=== PATIENT | female | born 1930 | race Caucasian/White ===

== ENCOUNTER 2016-12-17 12:47 | Emergency (ER) | payer OTHER ==
[2016-12-17] MEDS ORDERED: XYLOCAINE 1% INJ ONE (15:59)
[2016-12-17] MEDS ORDERED: XYLOCAINE-MPF 1% 10 ML ONE (16:25)
--- NOTE | 2016-12-17 18:33 | PROVIDER DOCUMENTATION ---
HPI-Rash/Wound/ReCheck - General Chief Complaint: Extremity Injury Stated Complaint: FALL Time Seen by Provider: 12/17/16 15:38 Source: patient, family Allergies/Adverse Reactions: Allergies Allergy/AdvReac Type Severity Reaction Status Date / Time No Known Allergies Allergy Verified 02/08/16 15:15 Home Medications: Home Medication List Medication Instructions Recorded Confirmed Last Taken Type Amlodipine Besylate 10 mg PO DAILY 05/14/13 02/08/16 02/08/16 History Citalopram [Celexa] 20 mg PO DAILY 05/14/13 02/08/16 02/08/16 History Omeprazole [Prilosec] 20 mg PO DAILY@0700 #0 capsule 05/18/13 02/08/16 02/08/16 Rx Alprazolam [Xanax] 0.5 mg PO QHS 02/08/16 02/08/16 Unknown History Aspirin [[place] Aspirin] 1 tab PO DAILY 02/08/16 02/08/16 Unknown History Tramadol [Ultram] 2 tab PO DAILY 02/08/16 02/08/16 Unknown History Azithromycin [Zithromax Z-Raymond] 250 mg PO DIRECTED #1 pkg 12/17/16 Unknown Rx Prednisone 20 mg PO DAILY #6 tablet 12/17/16 Unknown Rx Progress - XRAY 1 XRAY Study: Chest XRAY Interpretation: ? infiltrate RLL Procedures - LACERATION/WOUND REPAIR/FB Left Forearm Wound Location: Other: forearm Wound Length: 8cm Wound's Depth, Shape: irregular, contused tissue Wound Explored/Foreign Body: clean Irrigated with Saline?: Yes Prepped with: Betadine, Kit Utilized, Sterile Drapes Applied Anesthetic: 1%, Lidocaine/Xylocaine Volume of Anesthetic (ml's): 8 Wound Repaired with: Sutures Suture Size/Type: 4.0, Non-Absorbable, Nylon Number of Sutures: 9 (Vertical Mattress) Layer Closure?: No Sterile Dressing Applied?: Yes Splint Applied?: No Sling Applied?: No Post Procedure Neurovascular Exam: Intact Procedure Comment: no complications Departure - Departure Time of Disposition Order: 18:31 DIAGNOSIS: Forearm laceration Qualifiers: Encounter type: initial encounter Laterality: left Qualified Code(s): S51.812A - Laceration without foreign body of left forearm, initial encounter Pneumonia Qualifiers: Pneumonia type: due to unspecified organism Laterality: right Lung location: lower lobe of lung Qualified Code(s): J18.1 - Lobar pneumonia, unspecified organism Disposition: HOME 01 Certified Medical Emergency: Emergent Condition: Good Additional Instructions: Take medication as prescribed. Keep area clean and dry. Follow up in 1 week for suture removal. ED Follow Up Instructions: You have been treated by a care provider in the Emergency Department. These instructions are being provided to you so you can have an understanding of how to care for yourself upon discharge. Upon discharge from the Emergency Department, you are responsible for making arrangements for follow-up care by a physician of your choice. Take all prescribed medications as directed. Return to the Emergency Department immediately for any new or worsening symptoms. You may call the Physician Referral phone number at [phone] to obtain a list of Physicians who are taking new patients. Prescriptions: Prednisone 20 mg PO DAILY #6 tablet Azithromycin [Zithromax Z-Raymond] 250 mg PO DIRECTED #1 pkg Referrals: Doc Lundberg [Primary Care Provider] - Attestation - Physician/ REBEKAH Attestation Patient care was provided by Advanced Practice Provider:: Yes Advanced Practice Provider:: Saturnino Abraham Advanced Practice Provider documentation review:: The Mid-level provider documentation, treatment plan and medical decision making was reviewed by the physician who agrees with all treatment and medical decision making by the MLP.
[2016-12-17 19:12] VITALS: BP 124/77
--- NOTE | 2016-12-18 07:00 | Diag Imaging Result Document ---
PROCEDURE NAME: CHEST-2 VIEWS - 12/17/2016 FRONTAL AND LATERAL CHEST, 2 VIEWS: COMPARISON: No comparison films. FINDINGS: Mild increased markings in the lower lungs. The heart is not enlarged. The pulmonary vessels are small. No consolidation. No pleural effusions. IMPRESSION: 1. No pneumonia. 2. Bibasilar atelectasis or fibrosis. 3. Patient may have emphysema.
== END 2016-12-17 19:08 | disposition home or self-care (01) ==
LOC: P.ED 12:47
DX: S51.812A Laceration without foreign body of left forearm, initial encounter (principal); J18.1 Lobar pneumonia, unspecified organism; W06.XXXA Fall from bed, initial encounter
CPT/HCPCS: 71020; 99283